=== PATIENT | female | born 1970 | race Caucasian/White ===

== ENCOUNTER → 2023-11-15 10:25 | Outpatient (REF) | payer OTHER, SELFPAY | LOC: HWWDC 10:25 | PROVIDERS: ATTENDING PHYSICIAN Nurse Practitioner Family | DX: Z12.31 Encounter for screening mammogram for malignant neoplasm of breast (principal) | CPT/HCPCS: 77063; 77067 ==

== ENCOUNTER → 2024-05-09 10:33 | Outpatient (REF) | payer OTHER, SELFPAY | LOC: HWRAD 10:33 | PROVIDERS: ATTENDING PHYSICIAN Advanced Practice Midwife; FAMILY PHYSICIAN Nurse Practitioner Family | DX: N80.9 Endometriosis, unspecified (principal) | CPT/HCPCS: 76830; 76856 ==

== ENCOUNTER 2024-06-30 11:15 | Emergency (ER) | payer OTHER, SELFPAY ==
[2024-06-30 11:27] VITALS: BP 138/82
[2024-06-30 12:01] LABS: % Basophils 0.8 % (0-2); % Eosinophils 7.1 % (0-6); % Immature Granulocytes 0.3 % (0-0.5); % Lymphocytes 36.4 % (20.5-51.1); % Monocytes 5.9 % (1.7-9.3); % Neutrophils 49.5 % (42.2-75.2); Absolute Basophils 0.1 10^3/uL (0-0.2); Absolute Eosinophils 0.4 10^3/uL (0-0.7); Absolute Lymphocytes 2.2 10^3/uL (1.2-3.4); Absolute Monocytes 0.4 10^3/uL (0.1-0.6); Absolute Neutrophils 2.9 10^3/uL (1.4-6.5); Hematocrit 38.3 % (37.0-47.0); Hemoglobin 11.9 g/dL (12.0-16.0); Mean Corp Hgb Conc. 31.1 g/dL (33.0-37.0); Mean Corpuscular Hgb 24.1 pg (27.0-31.0); Mean Corpuscular Volume 77.7 fL (81.0-99.0); Mean Platelet Volume 9.6 fL (7.4-10.4); Nucleated Red Blood Cells % 0 %; Platelet Count 292 10^3/uL (130-400); Red Blood Cell Count 4.93 10^6/uL (4.20-5.40); Red Cell Dist. Width 15.4 % (11.5-14.5); White Blood Cell Count 5.9 10^3/uL (4.8-10.8)
[2024-06-30 12:03] VITALS: BP 120/73
[2024-06-30 12:24] LABS: HCG, Serum Qualitative Screen Negative
[2024-06-30 12:28] LABS: Troponin I < 0.012 ng/ml
[2024-06-30 12:34] LABS: ALT (SGPT) 18 U/L (0-35); AST (SGOT) 22 U/L (14-36); Albumin 4.2 g/dl (3.5-5.0); Alkaline Phosphatase 61 U/L (38-126); Blood Urea Nitrogen 18 mg/dl (7-17); Calcium 9.5 mg/dl (8.4-10.2); Carbon Dioxide 27 mmol/L (22-30); Chloride 111 mmol/L (98-107); Glucose 121 mg/dl (70-99); Potassium 4.6 mmol/L (3.5-5.1); Sodium 142 mmol/L (135-145); Total Bilirubin 0.4 mg/dl (0.2-1.3); Total Protein 6.8 g/dl (6.3-8.2); eGFR > 60.00
--- NOTE | 2024-06-30 12:50 | ED.GENMED ---
History of Present Illness
<AMARJIT Linn - Last Filed: 06/30/24 15:58>
General
Chief Complaint: Chest Pain
Source: patient
Exam Limitations: none
Time Seen by Provider: 06/30/24 12:09
Nursing documentation reviewed up to this point in time: agreed with
History of Present Illness
History of Present Illness:
53-year-old female past medical history of PFO repair, previous stroke, SVT with ablation followed at [facility] presents to the ER for evaluation. She reports intermittently over the past week she has had intermittent chest tightness which is
not associate with exertion. She reports she walks 5 miles a day and has no symptoms of tightness during the walk. She had no associated shortness of breath /chest pain. She denies any recent injury fever chills cough. Last night she reports
around 8:30 PM she was driving and suddenly her vision started to become like tunnel vision and things went black. This occurred while driving. She reports it lasted very brief because she woke up driving. She remembers that she' did not feel
right,' right before the episode but cannot describe how she was feeling.
Patient has had no further episodes since. She was anxious about symptoms and wanted to be evaluated.
Patient has a very mild right-sided headache now however no other symptoms.
Past History
<AMARJIT Linn - Last Filed: 06/30/24 15:58>
Past History
ED Past Medical History: Arrthythmia (SVT), Other (Seasonal asthma, Lymes, Endometriosis) and Other (PFO/ASD)
ED Past Surgical History: Cardiac and Gynecological (Endometriosis)
Social History
Tobacco: Former smoker
Alcohol: Occasional
Drug: None
Personal:
Living: with family
Employment: Employed
Family History
Family History: Other; Negative Sudden
Review of Systems
<AMARJIT Linn - Last Filed: 06/30/24 15:58>
Review of Systems
Allergies reviewed?: Yes
All Other Systems: ROS reviewed and negative except as documented in HPI and ROS
Constitutional: Reports no symptoms
Respiratory: Reports no symptoms; Denies trouble breathing
Cardiac: Reports other (Intermittent chest tightness); Denies palpitations
ABD/GI: Reports no symptoms
: Reports no symptoms
Musculoskeletal: Reports no symptoms
Skin: Reports no symptoms
Neurological: Reports no symptoms
Psychiatric: Reports no symptoms
Phy Exam
<AMARJIT Linn - Last Filed: 06/30/24 15:58>
General Physical Exam
General Presentation: no apparent distress
General age: appears stated age
General Skin: warm and dry
General Habitus: normal
General Mental: alert
General Hydration: appears well hydrated
Cardiovascular Exam
Cardiovascular Exam: regular rate/rhythm, no murmur and normal peripheral pulses
Pulmonary Exam
Pulmonary Exam: lungs clear and no respiratory distress
Neurological Exam
Neurological Exam: alert, oriented x3, no motor deficits and no sensory deficits
Donny Coma Scale
Eye Opening: Spontaneous
Verbal Response: Oriented
Motor Response: Obeys Commands
GCS Total Score: 15
Cerebellar
Cerebellar Function: normal finger to nose
Musculoskeletal Exam
Musculoskeletal Exam: full ROM
Skin Exam
Skin Exam: normal color and warm/dry
Psychiatric Exam
Psychiatric Exam: normal mood/affect
<Xavi Bains DO - Last Filed: 06/30/24 13:39>
Donny Coma Scale
GCS Total Score: 15
Scores
<AMARJIT Linn - Last Filed: 06/30/24 15:58>
Heart Score for Chest Pain Patients
STEMI patient?: Not applicable
Course
<AMARJIT Linn - Last Filed: 06/30/24 15:58>
Orders/Labs/Results
Orders:
Orders
06/30/24 11:17
Electrocardiogram (*1) Urgent
Reason for Study: Chest Pain
EKG- Treatment ONCE
06/30/24 11:32
Test Result ONCE
06/30/24 11:51
Complete Blood Count/With Diff Urgent
Comprehensive Metabolic Panel Urgent
HCG, Serum Qualitative Screen Urgent
Troponin I Urgent
06/30/24 13:23
CT Head W/o Iv Contrast Urgent
Comment:
Reason For Exam: near syncope
Abnormal Lab Results
06/30/24
11:51
Hgb 11.9 L g/dL
(12.0-16.0)
MCV 77.7 L fL
(81.0-99.0)
MCH 24.1 L pg
(27.0-31.0)
MCHC 31.1 L g/dL
(33.0-37.0)
RDW 15.4 H %
(11.5-14.5)
Eosinophils % 7.1 H %
(0-6)
Chloride 111 H mmol/L
(98-107)
BUN 18 H mg/dl
(7-17)
Glucose 121 H mg/dl
(70-99)
06/30/24 11:51
06/30/24 11:51
Vital Signs
Initial and Last Documented VS:
Initial Vital Signs
Temp Pulse Resp BP Pulse Ox
98.4 F 69 18 138/82 99
06/30/24 11:27 06/30/24 11:27 06/30/24 11:27 06/30/24 11:27 06/30/24 11:27
Last Documented Vital Signs
Temp Pulse Resp BP Pulse Ox
98.4 F 52 11 129/69 98
06/30/24 11:27 06/30/24 13:45 06/30/24 13:45 06/30/24 13:00 06/30/24 13:45
Chili Powder Mixer consulted with Physician
Chili Powder Mixer consulted with physician?: Yes
Name of Physician Consulted: Herson
<Xavi Bains, DO - Last Filed: 06/30/24 13:39>
Orders/Labs/Results
Orders:
Orders
06/30/24 11:17
Electrocardiogram (*1) Urgent
Reason for Study: Chest Pain
EKG- Treatment ONCE
06/30/24 11:32
Test Result ONCE
06/30/24 11:51
Complete Blood Count/With Diff Urgent
Comprehensive Metabolic Panel Urgent
HCG, Serum Qualitative Screen Urgent
Troponin I Urgent
06/30/24 13:23
CT Head W/o Iv Contrast Urgent
Comment:
Reason For Exam: near syncope
Abnormal Lab Results
06/30/24
11:51
Hgb 11.9 L g/dL
(12.0-16.0)
MCV 77.7 L fL
(81.0-99.0)
MCH 24.1 L pg
(27.0-31.0)
MCHC 31.1 L g/dL
(33.0-37.0)
RDW 15.4 H %
(11.5-14.5)
Eosinophils % 7.1 H %
(0-6)
Chloride 111 H mmol/L
(98-107)
BUN 18 H mg/dl
(7-17)
Glucose 121 H mg/dl
(70-99)
06/30/24 11:51
06/30/24 11:51
Vital Signs
Initial and Last Documented VS:
Initial Vital Signs
Temp Pulse Resp BP Pulse Ox
98.4 F 69 18 138/82 99
06/30/24 11:27 06/30/24 11:27 06/30/24 11:27 06/30/24 11:27 06/30/24 11:27
Last Documented Vital Signs
Temp Pulse Resp BP Pulse Ox
98.4 F 52 11 129/69 98
06/30/24 11:27 06/30/24 13:45 06/30/24 13:45 06/30/24 13:00 06/30/24 13:45
<AMARJIT Linn - Last Filed: 06/30/24 15:58>
MDM/Problems Addressed
Differential Diagnosis Includes:
not limtied to : ACS, arrhythmia, syncope
MDM/Problems Addressed:
Patient no acute distress on arrival and no neurological deficits no complaints of chest pain presently or shortness of breath. She describes an episode of tunnel vision and ' vision went black' yesterday while driving. Prior to that she just
remembers not feeling right however had no actual chest pain or palpitations. As documented patient does have a history of PFO closure with a stroke and SVT with ablation. She followed up in cardiology. Patient has had no symptoms today presents
awake alert no acute distress normal neurological exam. Initial EKG shows frequent PVCs however patient on the monitor during my exam is had no more PVCs.
Her labs unremarkable. She does report she has had intermittent chest tightness over the past week not associate with exertion and she is very active walking 5 miles per day. Her cardiac troponin is negative.
Patient concerned as she does have a history of stroke though she is neurologically intact we will get a CAT scan. Case with ED physician patient is well-appearing she is stable for discharge home however will need close follow-up with her
windows software engineer for likely Holter monitor.
7035: Patient has been monitored here with no arrhythmia or ectopy. Patient remains well-appearing in no acute distress presently. CT head negative.
as discussed above after discussion with ED physician patient is stable to go home however she will close follow-up with her windows software engineer. Discussed aware to return to the ER if any worsening of symptoms.
<AMARJIT Linn - Last Filed: 06/30/24 15:58>
*Radiology
Radiology exam reviewed: radiology read reviewed
*Pulse Oximetry
Patient hypoxic: no
*EKG
Interpreted by ED Provider?: Yes
Heart Rate: 61
Rate: normal
Rhythm: sinus and PVC's
*Critical Care Note
Total Time (30-74mins, 75-104mins- exclusive of procedures): Not Applicable
ED Attending Note
<AMARJIT Linn - Last Filed: 06/30/24 15:58>
-
Portions of this chart may have been created with voice recognition software.� Occasional wrong word or��sound alike� substitutions may have occurred due to the inherent limitations of voice recognition software.
<Xavi Bains DO - Last Filed: 06/30/24 13:39>
ED Attending Note
Patient seen and examined by attending physician: Yes
I performed the substantive portion of visit, reviewed & personally made and approve the management plan that is documented in note by myself or NABOR.: Yes
ED Attending Note:
I evaluated the patient bedside. EKG shows significant ventricular ectopy however on the monitor more recently, she had a normal sinus rhythm with no ectopy. Patient does report some very rare intermittent word finding problems however this is not
noted on exam. She reports history of CVA noted on imaging. She wishes to proceed with CT imaging of the brain currently.
Discharge Plan
Departure
Patient Disposition: Home (Routine Discharge)
Date of Disposition: 06/30/24
Time of Disposition: 15:51
Patient with high blood pressure during this ER visit?: Yes
Condition: Fair
Covid-19: Not Applicable
Discharge Problem:
Syncope, PVC (premature ventricular contraction)
Instructions: Ventricular premature beats, Syncope (fainting) - Discharge instructions
Prescriptions:
No Action
clopidogrel 75 MG tablet
75 mg PO DAILY
aspirin 81 MG tablet,delayed release (DR/EC)
81 mg PO DAILY
diltiazem HCl 180 MG capsule,extended release 24hr
180 mg PO DAILY Qty: 20 1RF
Referrals:
Tracie Petty CRNP [Family Provider] -
Activity Restrictions/Additional Instructions:
As discussed you were monitored here with no arrhythmias your labs are unremarkable and your CAT scan was negative. Please follow-up with your windows software engineer. Call Wednesday to make an appointment as soon as possible.
return if any worsening of symptoms.
Interventions
Interventions:
*Risk Screen - Suicide Last Done: 06/30/24 11:27
*General Assessment Last Done: 06/30/24 11:27
ED- Cardiac Assessment Last Done: 06/30/24 13:17
Discharge Date and Time
Print Language: ESTONIAN
[2024-06-30 13:00] VITALS: BP 129/69
[2024-06-30 14:00] VITALS: BP 95/72
[2024-06-30 15:27] VITALS: BP 107/76
[2024-06-30 16:00] VITALS: BP 113/63
== END 2024-06-30 16:08 | disposition home or self-care (01) ==
LOC: EMR 11:15
PROVIDERS: Emergency Medicine; EMERGENCY PHYSICIAN Emergency Medicine; FAMILY PHYSICIAN Nurse Practitioner Family
DX: R55 Syncope and collapse (principal); I49.3 Ventricular premature depolarization; I47.10 Supraventricular tachycardia, unspecified; Z86.73 Personal history of transient ischemic attack (TIA), and cerebral infarction without residual deficits; Z87.74 Personal history of (corrected) congenital malformations of heart and circulatory system; Z87.891 Personal history of nicotine dependence
CPT/HCPCS: 99284; 70450; 80053; 84484; 84703; 85025; 93005

== ENCOUNTER → 2024-11-15 09:18 | Outpatient (REF) | payer OTHER, SELFPAY | LOC: HWWDC 09:18 | PROVIDERS: ATTENDING PHYSICIAN Advanced Practice Midwife; FAMILY PHYSICIAN Nurse Practitioner Family | DX: Z12.31 Encounter for screening mammogram for malignant neoplasm of breast (principal) | CPT/HCPCS: 77063; 77067 ==